=== PATIENT | female | born 1990 | race Two or more races ===

== ENCOUNTER 2017-02-28 23:23 | Emergency (ER) | payer MEDICAID ==
--- NOTE | ~2017-02-28 | CR281 ---
[facility] A Service of [facility] & [facility] RADIOLOGY TEXT RESULTS PATIENT: CLAUDIA METZGER LOCATION: [facility] : 86 UNIT #: [id number] AGE: [address]: Mignon Springer MD SEX: F ORDER DR: [id number] [facility] [address] [place], [place] [address] [id number] MR#: [id number] Acc #: [id number] NAME: CLAUDIA METZGER : 1990 SEX: F STUDY DATE/TIME: 03/01/2017 0:42 UNIT: [facility] ROOM: STUDY DESCRIPTION: CR Wrist Min 3 View Lt Attending Physician: Mignon Springer M.D. Ordering Physician: Ed Jose Go M.D. Primary Care Physician: No Primary Care Physician MEDICAL IMAGING REPORT This report is preliminary unless electronic signature is present EXAM Left wrist series INDICATION Left wrist pain after a fall today. PROCEDURE 3 views of the left wrist. FINDINGS Distal radius fracture mildly comminuted and displaced and angulated dorsally. There is a nondisplaced ulnar styloid fracture. No evidence for radiocarpal dislocation. IMPRESSION 1. Dorsally displaced and angulated distal radius fracture. 2. Nondisplaced ulnar styloid fracture. 3. No evidence for radiocarpal dislocation. Dictated by... Fox Mckeon M.D. THIS IS AN ELECTRONICALLY VERIFIED REPORT Fox Mckeon M.D. at 03/01/2017 10:12 PM RADHA/avis TD: 03/01/2017 09:28 JOB #: [id number] MEDICAL IMAGING REPORT Page 1 of 1 COPY
== END 2017-03-01 02:38 | disposition home or self-care (01) ==
LOC: CED 23:23
DX: S52.502A Unspecified fracture of the lower end of left radius, initial encounter for closed fracture (principal); S52.615A Nondisplaced fracture of left ulna styloid process, initial encounter for closed fracture; W18.39XA Other fall on same level, initial encounter; Y92.009 Unspecified place in unspecified non-institutional (private) residence as the place of occurrence of the external cause
CPT/HCPCS: 73110; 99283